=== PATIENT | female | born 1990 | race Caucasian/White ===

== ENCOUNTER 2018-03-05 16:13 | Emergency (ER) | payer SELFPAY ==
[~2018-03-05] VITALS: Ht 170.2 cm; Wt 57.6 kg
[2018-03-05 16:20] VITALS: BP 120/78
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
[2018-03-05] MEDS ORDERED: PROC10TA57 PO (17:05)
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
[2018-03-05] MEDS ORDERED: PROCHLORPERAZINE 10 MG/2 ML VIAL. IM ONE (17:45)
== END 2018-03-05 17:18 | disposition home or self-care (01) ==
LOC: ER 16:13
DX: R51 Headache (principal); M25.572 Pain in left ankle and joints of left foot; R07.89 Other chest pain; G89.11 Acute pain due to trauma; F41.9 Anxiety disorder, unspecified; V89.2XXA Person injured in unspecified motor-vehicle accident, traffic, initial encounter; Y93.I9 Activity, other involving external motion; Y92.488 Other paved roadways as the place of occurrence of the external cause; Y99.8 Other external cause status
CPT/HCPCS: 71045; 73610; 96372; 99283; J0780

== ENCOUNTER 2018-03-25 02:01 | Emergency (ER) | payer OTHER ==
[~2018-03-25] VITALS: Ht 170.2 cm; Wt 56.2 kg
[~2018-03-25 02:01] MED LIST: PROC10TA57 PO
--- NOTE | 2018-03-25 03:12 | PHYS DOC ---
Past Medical History Past Medical History: Anxiety Past Surgical History: Appendectomy, Cholecystectomy, Tonsillectomy, Tubal ligation Alcohol Use: None Drug Use: None Adult General Chief Complaint Chief Complaint: ABDOMINAL PAIN HPI HPI Patient is a 28 year old female who presents with right-sided abdominal pain. Patient is been having nausea and vomiting symptoms for the past several weeks. She was seen by her CUSTOMER DEVELOPMENT MANAGER 2 days ago and had a serum test performed as well as ultrasound both of which were negative for . Patient has been having increasing right-sided abdominal pain that is intermittent. Tonight in the shower it caused her to double over and so she presented to the emergency department for further evaluation. Patient has not seen her primary care physician for these nausea and vomiting issues. Has taken no pain medicine for it. Nothing seems to provoke or palliate the discomfort. It is waxing and waning in nature. Currently it is mild. No diarrhea.[] Review of Systems Review of Systems Constitutional: Denies fever or chills [] Eyes: Denies change in visual acuity, redness, or eye pain [] HENT: Denies nasal congestion or sore throat [] Respiratory: Denies cough or shortness of breath [] Cardiovascular: No chest pain or palpitations[] GI: See history of present illness[] : Denies dysuria or hematuria [] Musculoskeletal: Denies back pain or joint pain [] Integument: Denies rash or skin lesions [] Neurologic: Denies headache, focal weakness or sensory changes [] Endocrine: Denies polyuria or polydipsia [] All other systems were reviewed and found to be within normal limits, except as documented in this note. Current Medications Current Medications Current Medications Medications (Trade) Dose Ordered Sig/Florinda Start Time Stop Time Status Last Admin Dose Admin Hyoscyamine (Anaspaz) 0.125 mg ONCE ONCE 03/25/18 03:30 03/25/18 03:31 DC 03/25/18 04:24 0.125 MG Metoclopramide HCl (Reglan Vial) 10 mg 1X ONCE 03/25/18 03:30 03/25/18 03:31 DC 03/25/18 03:53 10 MG Sodium Chloride 1,000 ml @ 1,000 mls/hr 1X ONCE 03/25/18 03:30 03/25/18 04:29 DC 03/25/18 03:53 1,000 MLS/HR Allergies Allergies Allergies Coded Allergies Type Severity Reaction Last Updated Verified No Known Drug Allergies 03/05/18 No Physical Exam Physical Exam Constitutional: Well developed, well nourished, no acute distress, non-toxic appearance. [] HENT: Normocephalic, atraumatic, bilateral external ears normal, oropharynx moist, no oral exudates, nose normal. [] Eyes: PERRLA, EOMI, conjunctiva normal, no discharge. [] Neck: Normal range of motion, no tenderness, supple, no stridor. [] Cardiovascular:Heart rate regular rhythm, no murmur [] Lungs & Thorax: Bilateral breath sounds clear to auscultation [] Abdomen: Bowel sounds normal, soft, right-sided tenderness, no rebound, no guarding, no rigidity, sits up without any difficulty, no masses, no pulsatile masses. [] Skin: Warm, dry, no erythema, no rash. [] Back: No tenderness, no CVA tenderness. [] Extremities: No tenderness, no cyanosis, no clubbing, ROM intact, no edema. [] Neurologic: Alert and oriented X 3, normal motor function, normal sensory function, no focal deficits noted. [] Psychologic: Affect normal, judgement normal, mood normal. [] Current Patient Data Vital Signs Vital Signs Date Time Temp Pulse Resp B/P (MAP) Pulse Ox O2 Delivery O2 Flow Rate FiO2 03/25/18 02:14 98.2 83 18 113/63 (80) 99 Room Air 98.2 Lab Values Laboratory Tests Test 03/25/18 02:19 03/25/18 02:36 03/25/18 02:41 White Blood Count 7.6 x10^3/uL (4.0-11.0) Red Blood Count 4.81 x10^6/uL (3.50-5.40) Hemoglobin 13.4 g/dL (12.0-15.5) Hematocrit 40.6 % (36.0-47.0) Mean Corpuscular Volume 85 fL (79-100) Mean Corpuscular Hemoglobin 28 pg (25-35) Mean Corpuscular Hemoglobin Concent 33 g/dL (31-37) Red Cell Distribution Width 16.5 % (11.5-14.5) H Platelet Count 169 x10^3/uL (140-400) Neutrophils (%) (Auto) 54 % (31-73) Lymphocytes (%) (Auto) 38 % (24-48) Monocytes (%) (Auto) 6 % (0-9) Eosinophils (%) (Auto) 1 % (0-3) Basophils (%) (Auto) 1 % (0-3) Neutrophils # (Auto) 4.1 x10^3uL (1.8-7.7) Lymphocytes # (Auto) 2.9 x10^3/uL (1.0-4.8) Monocytes # (Auto) 0.5 x10^3/uL (0.0-1.1) Eosinophils # (Auto) 0.1 x10^3/uL (0.0-0.7) Basophils # (Auto) 0.0 x10^3/uL (0.0-0.2) Sodium Level 137 mmol/L (136-145) Potassium Level 3.3 mmol/L (3.5-5.1) L Chloride Level 104 mmol/L (98-107) Carbon Dioxide Level 27 mmol/L (21-32) Anion Gap 6 (6-14) Blood Urea Nitrogen 8 mg/dL (7-20) Creatinine 0.7 mg/dL (0.6-1.0) Estimated GFR (Cockcroft-Gault) 100.4 BUN/Creatinine Ratio 11 (6-20) Glucose Level 97 mg/dL (70-99) Calcium Level 9.4 mg/dL (8.5-10.1) Total Bilirubin 0.4 mg/dL (0.2-1.0) Aspartate Amino Transferase (AST) 16 U/L (15-37) Alanine Aminotransferase (ALT) 19 U/L (14-59) Alkaline Phosphatase 59 U/L (46-116) Total Protein 8.0 g/dL (6.4-8.2) Albumin 4.1 g/dL (3.4-5.0) Albumin/Globulin Ratio 1.1 (1.0-1.7) Lipase 130 U/L (73-393) Urine Collection Type Unknown Urine Color Yellow Urine Clarity Cloudy Urine pH 6.0 Urine Specific [place] 1.025 Urine Protein 30 mg/dL (NEG-TRACE) Urine Glucose (UA) Negative mg/dL (NEG) Urine Ketones (Stick) Negative mg/dL (NEG) Urine Blood Negative (NEG) Urine Nitrite Negative (NEG) Urine Bilirubin Small (NEG) Urine Urobilinogen Dipstick 1.0 mg/dL (0.2 mg/dL) Urine Leukocyte Esterase Moderate (NEG) Urine RBC Occ /HPF (0-2) Urine WBC >40 /HPF (0-4) Urine Squamous Epithelial Cells Many /LPF Urine Bacteria Many /HPF (0-FEW) Urine Mucus Marked /LPF POC Urine HCG, Qualitative Hcg negative (Negative) Laboratory Tests 03/25/18 02:19 Laboratory Tests 03/25/18 02:19 EKG EKG [] Radiology/Procedures Radiology/Procedures CT abdomen and pelvis without contrast PQRS statement: CT scans at this facility use dose reduction including either automated exposure control, iterative reconstructions, and /or weight based radiation dosing via mA and kV modification when appropriate to reduce radiation dose to as low as reasonably achievable. HISTORY: Right-sided abdominal pain. TECHNIQUE: Helical noncontrast imaging abdomen and pelvis was acquired. Abdomen findings: Lung bases unremarkable. Disc bulges lower lumbar spine. Cholecystectomy. Kidneys, adrenals, pancreas, spleen, liver unremarkable. No urinary calculi or hydronephrosis. Large volume of stool. Appendectomy. No small bowel obstruction or inflammatory change. No abdominal fluid. Pelvis findings: Ovaries somewhat obscured by surrounding bowel loops. Uterus, bladder unremarkable. Large volume of stool within the rectum. Bones unremarkable. IMPRESSION: 1. Constipation with a large volume of stool. 2. Appendectomy. Cholecystectomy. 3. No urinary calculi or hydronephrosis.[] Course & Med Decision Making Course & Med Decision Making Pertinent Labs and Imaging studies reviewed. (See chart for details) ED course: Patient arrived, was placed in bed, tolerated exam well. Patient received medication for her discomfort as well as the nausea and vomiting. She was transported to and from [place] with any complications. After return lab and imaging studies these were discussed with the patient and family who voiced understanding. All questions were answered. Medical decision making: There is no evidence of obstruction, perforation, kidney stone, pyelonephritis, nor significant other intra-abdominal pathology. No evidence of an ectopic given the patient is not .[] Dragon Disclaimer Dragon Disclaimer This electronic medical record was generated, in whole or in part, using a voice recognition dictation system. Departure Departure Impression: Primary Impression: Abdominal pain Condition: IMPROVED Referrals: SURYA ALCALA DO (PCP) Follow-up in 2 days Patient Instructions: Abdominal Pain, Constipation, Adult, Urinary Tract Infection Additional Instructions: Drink plenty of fluids. Increase the fiber in your diet. This can include fresh fruits and vegetables as well as cereals with "bran" and "fiber" in the name. Follow-up with regular doctor in 2 days. Return to the ER if worsening pain or any other concerns. Scripts Hyoscyamine Sulfate (LEVSIN) 0.125 Mg Tablet 0.125 MG PO QID, #30 TAB Prov: CARRIE MEAD DO 03/25/18 Sulfamethoxazole/Trimethoprim (BACTRIM DS TABLET) 1 Each Tablet 1 TAB PO BID, #14 TAB Prov: CARRIE MEAD DO 03/25/18 Problem Qualifiers Primary Impression: Abdominal pain Abdominal location: right upper quadrant Qualified Codes: R10.11 - Right upper quadrant pain CARRIE MEAD DO Mar 25, 2018 03:12
[2018-03-25 03:22] LABS: BASO % 1 % (0-3); EOS # 0.1 x10^3/uL (0.0-0.7); EOS % 1 % (0-3); HEMATOCRIT 40.6 % (36.0-47.0); HEMOGLOBIN 13.4 g/dL (12.0-15.5); LYMPH # 2.9 x10^3/uL (1.0-4.8); LYMPH % 38 % (24-48); MEAN CORPUSCULAR HEMOGLOBIN 28 pg (25-35); MEAN CORPUSCULAR HGB CONC 33 g/dL (31-37); MEAN CORPUSCULAR VOLUME 85 fL (79-100); MONO # 0.5 x10^3/uL (0.0-1.1); MONO % 6 % (0-9); NEUT # 4.1 x10^3uL (1.8-7.7); NEUT % 54 % (31-73); PLATELET COUNT 169 x10^3/uL (140-400); RED BLOOD COUNT 4.81 x10^6/uL (3.50-5.40); RED CELL DISTRIBUTION WIDTH 16.5 % (11.5-14.5); WHITE BLOOD COUNT 7.6 x10^3/uL (4.0-11.0)
[2018-03-25 03:24] LABS: BILIRUBIN,URINE SMALL (NEG); CLARITY,URINE CLOUDY; COLOR,URINE YELLOW; NITRITE,URINE NEGATIVE (NEG); PROTEIN,URINE 30 mg/dL (NEG-TRACE)
[2018-03-25 03:29] LABS: BACTERIA,URINE MANY /HPF (0-FEW); RBC,URINE OCC /HPF (0-2); SQUAMOUS EPITHELIAL CELL,UR MANY /LPF; WBC,URINE >40 /HPF (0-4)
[2018-03-25 03:30] LABS: CALCIUM 9.4 mg/dL (8.5-10.1); CREATININE 0.7 mg/dL (0.6-1.0); GFR 100.4; POTASSIUM 3.3 mmol/L (3.5-5.1)
[2018-03-25] MEDS ORDERED: HYOSCYAMINE 0.125 MG TAB.RAPDIS PO ONE (03:30)
[2018-03-25] MEDS ORDERED: IV NORMAL SALINE 1000ML BAG 1,000 ML IV ONE (03:30)
[2018-03-25] MEDS ORDERED: METOCLOPRAMIDE HCL 10 MG/2 ML VIAL. IV ONE (03:30)
[2018-03-25 03:36] LABS: ALBUMIN 4.1 g/dL (3.4-5.0); ALBUMIN/GLOBULIN RATIO 1.1 (1.0-1.7); TOTAL BILIRUBIN 0.4 mg/dL (0.2-1.0)
--- NOTE | 2018-03-25 03:45 | RAD ---
CT abdomen and pelvis without contrast PQRS statement: CT scans at this facility use dose reduction including either automated exposure control, iterative reconstructions, and /or weight based radiation dosing via mA and kV modification when appropriate to reduce radiation dose to as low as reasonably achievable. HISTORY: Right-sided abdominal pain. TECHNIQUE: Helical noncontrast imaging abdomen and pelvis was acquired. Abdomen findings: Lung bases unremarkable. Disc bulges lower lumbar spine. Cholecystectomy. Kidneys, adrenals, pancreas, spleen, liver unremarkable. No urinary calculi or hydronephrosis. Large volume of stool. Appendectomy. No small bowel obstruction or inflammatory change. No abdominal fluid. Pelvis findings: Ovaries somewhat obscured by surrounding bowel loops. Uterus, bladder unremarkable. Large volume of stool within the rectum. Bones unremarkable. IMPRESSION: 1. Constipation with a large volume of stool. 2. Appendectomy. Cholecystectomy. 3. No urinary calculi or hydronephrosis. Electronically signed by: Guilherme Li MD (03/25/2018 3:40 AM) [id number]
[2018-03-25 03:55] VITALS: BP 90/59
[2018-03-25] MEDS ORDERED: SULF1TAB24 PO (04:35)
[2018-03-25] MEDS ORDERED: HYOS0.1264 PO (04:35)
[2018-03-25] MEDS ORDERED: SMZ/TMP 800/160MG TABLET. PO ONE (05:00)
[2018-03-25] MEDS ORDERED: KETOROLAC 15 MG/ML VIAL. IV ONE (05:00)
== END 2018-03-25 05:04 | disposition home or self-care (01) ==
LOC: ER 02:01
DX: R10.11 Right upper quadrant pain (principal); R11.2 Nausea with vomiting, unspecified; F41.9 Anxiety disorder, unspecified; Z90.89 Acquired absence of other organs; Z90.49 Acquired absence of other specified parts of digestive tract; Z98.51 Tubal ligation status; K59.00 Constipation, unspecified
CPT/HCPCS: 36415; 74176; 80053; 81001; 81025; 83690; 85025; 87086; 96361; 96374; 96375; 99284; J1885; J2765; J7030